=== PATIENT | female | born 2005 | race Caucasian/White ===

== ENCOUNTER → 2025-08-28 14:44 | Outpatient (BNVA) | payer OTHER, SELFPAY | PROVIDERS: Visit Provider Physician Assistant | DX: S60.413A Abrasion of left middle finger, initial encounter (principal); W50.3XXA Accidental bite by another person, initial encounter | CPT/HCPCS: 99203 ==

== ENCOUNTER 2025-08-28 15:38 | Outpatient (REF) | payer OTHER, SELFPAY ==
--- OUTSIDE RECORDS SUMMARY | 2025-08-28 16:25 | XMS_ITS | Encounter Summary ---
Author Organization [facility] Address [address] [place], [place] [id number] Phone Care Team Providers Care Pharmacy Manager Name Role Phone Tracey Garcia MD Primary Care Provider [phone] Encounter Details Date Type Department Care Team (Late st Contact Info) Description 04/16/2018 Conversion Encounter [facility] [address] [place] [address] Tracey Garcia MD [address] [place] [address] Social History Tobacco Use Types Packs/Day Years Used Date Smoking Tobacco: Never Assessed Comments Unknown Sex and Gender Information Value Date Recorded Sex Assigned at Female 05/07/2024 9:22 AM EDT Legal Sex Female 6:25 PM EDT Gender Identity Female 05/07/2024 9:22 AM EDT Sexual Orientation Straight 05/07/2024 9: 22 AM EDT documented as of this encounter Plan of Treatment Not on file documented as of this encounter Visit Diagnoses Not on filedocumented in this encounter Care Teams Pharmacy Manager Relationship Specialty Start Date End Date Tracey Garcia MD [address] [place] [address] PCP - General 04/05/18 documented as of this encounter
--- OUTSIDE RECORDS SUMMARY | 2025-08-28 16:25 | XMS_ITS | Clinical Summary ---
Author Organization [facility] Address [address] [place] [id number] Phone Care Team Providers Care Target Developer Name Role Phone Tracey Garcia MD Primary Care Provider [phone] Allergies No known active allergies Medications Acetaminophen (TYLENOL PO) Take by mouth. Active Active Problems Problem Noted Date Diagnosed Date Concussion without loss of consciousness 024 Overview (05/07/2024): 03/31/24 Dysmenorrhea 05/07/2024 Assessment & Plan (05/07/2024 9:26 AM EDT): Recommended dosing with Ibuprofen before menses start. She is not interested in considering control options at this time. Complete tear of right ACL 10/12/2022 Overview (10/12/2022): Seen at [facility] 09/2022, to have quadriceps graft Assessment & Plan (05/07/2024 9:24 AM EDT): Completed PT and is exercising daily without problems. Nevus 02/09/2021 Assessment & Plan (05/07/2024 9:30 AM EDT): Left shoulder, benign appearing but she is very fair skinned. She says she did see Dermatology and was cleared. Sun protection discussed. Assessment & Plan (02/09/2021 10:16 AM EDT): Nevus on shoulder, which is a difficult spot for her to keep an eye on, and she is very fair. Refer to Dermatology, number given. Elevated blood pressure reading 02/09/2021 Assessment & Plan (05/07/2024 9:28 AM EDT): Mildly elevated BP again today. Will check fasting labs, including plasma renin and urinalysis. List of [facility] hours given. Recommended checking several BP's, can come in here for this or can go to pharmacy. Glad to hear she is exercising daily! Assessment & Plan (02/16/2021 9:19 AM EDT): Note to school nurse to check several BP's once she is back to school and fax the readings to me. Will average out several readings, if that is elevated will bring her in for a tier 1 hypertension evaluation. Assessment & Plan (02/09/2021 10:21 AM EDT): May be anxious about the finger poke and shot today. RTC 1-2 weeks for recheck BP. BMI 38.0-38.9,adult 01/17/2019 Assessment & Plan (05/07/2024 9:31 AM EDT): Checking fasting labs. List of [facility] hours given. Glad to hear she is exercising daily! Assessment & Plan (02/09/2021 10:22 AM EDT): BMI down a bit from previous. Encouraged exercise, lifestyle changes. Resolved Problems Problem Noted Date Diagnosed Date Resolved Date Snoring 10/05/2017 02/09/2021 Encounters Date Type Department Care Team Description 07/09/2025 [facility]phone [facility] [address] [address] Nubia Jamison [place] patient aging out of practice from Last 3 Months Immunizations Immunization Administration Dates Next Due DTaP 04/28/2010,04/22/2006 DTaP / Hep B / IPV 2005,2005, 005 HPV Vaccine 9 Valent 01/18/2019,10/05/2017 Hep A, ped/adol 01/18/2019,10/05/2017 Hib (PRP-T) 04/22/2006, 5,2005,03/19 IPV 04/28/2010 Influenza, injectable, quadrivalent 11/29,10/31/2015,10/10/2014,12/14,10/12/2011,10/01/2010,10/29/2008 Influenza, injectable, quadr ivalent, preservative free 05/07/2024,10/26/2020,01/31/2020,01/18,10/05/2017,08/01/2013 Influenza, injectable, trivalent 12/25/2016,02/2015 Influenza, injectable, triva lent, preservative free 01/28/2006,2005 MMR 04/07/2009,01/28/2006 Meningococcal B Bexsero 05/07/2024 Meningococcal Conj (Menactra) MCV4P 02/09/2021,1 12/05/2016 Pneumococcal Conjugate 01/23/2006,2004,2005,03/19 Tdap 10/28/2015 Varicella 04/07/2009,01/28/2006 Family History Medical History Relation Name Comments Heart disease (Premature) Maternal Grandfather Hyperlipidemia Maternal Grandfather Hypertension Maternal Grandfather No Known Problems Maternal Grandmother No Known Problems Mother Diabetes Paternal Grandfather Hypertension Paternal Grandfather Lung cancer Paternal Grandmother No Known Problems Sister Relation Name Status Comments Brother Alive Father Alive sleep apnea Maternal Grandfather Alive Htn OR high cholesterol age: 67 diagnosed with Hypertension Maternal Grandmother Alive healthy age: 66 Mother Alive Healthy Other Alive Siblings: Healt hy 2sisisr 2004, 1997 brother 2000 Paternal Grandfather Alive Htn and type 2 DM age: 69 Paternal Grandmother Alive lung ca and enphysema age: 67 Sister Alive Social History Tobacco Use Types Packs/Day Years Used Date Smoking Tobacco: Never Tobacco Cessation:Counseling Given: Not Answered Alcohol Use Standard Drinks/Week Comments Never 0 (1 standard drink = 0.6 oz pur e alcohol) Hunger/Food Answer Date Recorded In the last 12 months, did y ou or your family ever eat less than you felt you should because there wasn't enough money for food? No 05/07/2024 Stable Housing Answer Date Recorded Are you worried that in the next 2 months you may not have stable housing? No 05/07/2024 Transportation Concerns Answer Date Rec orded In the last 12 months, have you or your family ever had to go without healthcare because you didn't have a way to get there? No 05/07/2024 Hazards in Home Answer Date Recorded Think about the place you li ve. Do you have problems with any of the following? Pests (mice or roaches), mold, no/not working smoke detectors, water leaks, no window guards. No 2023 Financing Utilities Answer Date Recorde d In the last 12 months, has t he electric, gas, oil, or water company threatened to shut off your services in your home? No 05/07/2024 Safety at Home Answer Date Recorded Are you or your family worried about feeling saf e in your home? No 05/07/2024 Outside Support Answer Date Recorded Do you feel that you need mo re support from other people or programs to help you care for yourself or your family? No 05/07/2024 Understanding Health Concerns Answer Da te Recorded Do you need help understandi ng your or your child's healthcare needs (diagnosis, medications, plan, etc.)? No 05/07/2024 Financing Health Concerns Answer Date R ecorded In the last 12 months, was t here a time when your child needed to see a doctor or get medications or supplies but could not because of cost? No 05/07/2024 Missing School or Work Answer Date Bhargav rded Did you or your child miss s chool or work because of a health problem that could have been avoided? No 05/07/2024 Child Education Answer Date Recorded Do you have concerns about y our/your child's learning or behavior in school, preschool, or daycare? No 05/07/2024 Comments Unknown Sex and Gender Information Value Date Recorded Sex Assigned at Female 05/07/2024 9:22 AM EDT Legal Sex Female 6:25 PM EDT Gender Identity Female 05/07/2024 9:22 AM EDT Sexual Orientation Straight 05/07/2024 9: 22 AM EDT Last Filed Vital Signs Vital Sign Reading Time Taken Comments Blood Pressure 130/82 05/07/2024 8:41 AM EDT pt is nervous to be here Pulse 105 05/19/2021 5:28 PM EDT Temperature 36.3 C (97.4 F) 04/02/2024 6:59 PM EDT Respiratory Rate - - Oxygen Saturation 98% 05/19/2021 5:2 8 PM EDT Inhaled Oxygen Concentration - - Weight 100 kg (220 lb 12.8 oz) 05/07/2024 8:41 AM EDT Height 161.3 cm (5' 3.5 ) 05/07/2024 8: 41 AM EDT Body Mass Index 38.5 05/07/2024 8:41 AM EDT Plan of Treatment Health Maintenance Due Date Last Done Comments Men B Vaccine (2 of 2 - Bexs ero SCDM 2-dose series) 11/06/2024 05/07/2024 Chlamydia and Gonorrhea Screening 11/28/2024 024 Influenza Vaccines (#1) 2025 05/07/20 24, 10/26/2020, 01/31/2020, Additional history exists COVID-19 Vaccine (4 - 2024-2 6 season) 2025 07/05/2022, 04/26/2021, 04/04/2021 DTaP,Tdap,and Td Vaccines (7 - Td or Tdap) 10/28/2025 10/28/2015, 04/28/2010, 04/22/2006, Additional history exists Hepatitis B Vaccines Completed 2005, 2005, 2005, Additional history exists Pneumococcal Vaccine Completed 01/23/2006, 2005, 2005, Additional history exists HIB Vaccines Completed 04/22/2006, 11/2004, 2005, Additional history exists MMR Vaccines Completed 04/07/2009, 01/28/2006 Varicella Vaccines Completed 04/07/2009, 01/28/2006 IPV Vaccines Completed 04/28/2010, 11/2004, 2005, Additional history exists HPV Vaccines Completed 01/18/2019, 10/05/2017 Hepatitis A Vaccines Completed 01/18/2019, 10/05/20 17 Meningococcal Vaccine Completed 02/09/2021, 017 Procedures * Due to [place] state law, this organization might not be sharing sensitive test results. Procedure Name Priority Date/Time Associated Diagnosis Comments CHLAMYDIA AND GONORRHEA, AMPLIFIED Routine 05/07/2024 9:39 AM EDT Encounter for well adult exam with abnormal findings from Last 3 Months or Most Recently Relevant to Health Maintenance Results * Due to [place] state law, this organization might not be sharing sensitive test results. * Chlamydia and Gonorrhoea, Amplified (05/07/2024 9:39 AM EDT) C trach DEANNA Negative Negative [facility] N gonorrhoeae DEANNA Negative Negative [facility] Urine (Urine) 05/07/2024 9:3 9 AM EDT 05/07/2024 Comment:URINE Narrative [facility] - 05/09/2024 9:07 AM EDT Performed at: 01 - [facility], [address], [place], [place] [id number] Open Hearth Helper: Khoi Gibbons MD, Phone: [phone] Tracey Garcia MD LAB MICROBIOLOGY - GENERAL OR DERABLES Final Result Performing Organization Address City/State/[facility] Co de Phone Number [facility] [address] [place] [address] from Last 3 Months or Most Recently Relevant to Health Maintenance Insurance BCMA PPO [id number] PPO Care Teams Target Developer Relationship Specialty Start Date End Date Tracey Garcia MD [address] [place] [address] PCP - General 04/05/18
== END 2025-08-28 15:39 | disposition home or self-care (01) ==
LOC: HO.LAB 15:38
PROVIDERS: Visit Provider Physician Assistant
DX: Z11.59 Encounter for screening for other viral diseases (principal); W50.3XXA Accidental bite by another person, initial encounter
CPT/HCPCS: 36415; 86706; 86707